=== PATIENT | male | born 1985 | race Two or more races ===

== ENCOUNTER 2022-01-10 01:35 | Emergency (ER) | payer MEDICAID ==
[~2022-01-10] VITALS: Ht 172.7 cm; Wt 70.0 kg
[2022-01-10 02:22] VITALS: BP 133/78
== END 2022-01-10 04:11 | disposition left against medical advice (07) ==
LOC: ER 01:35
DX: Z53.21 Procedure and treatment not carried out due to patient leaving prior to being seen by health care provider (principal)